=== PATIENT | female | born 1975 | race Caucasian/White ===

== ENCOUNTER → 2016-07-04 | Outpatient (CLI) | payer OTHER ==
[~2016-07-04] MED LIST: BUPR1TAB56 PO; folic acid OR; iron OR
--- NOTE | 2016-07-04 14:36 | REP ---
PA and lateral chest: There are no comparisons. The lung irvin are clear. The cardiac size is normal The sunil, mediastinum, and bony thorax are unremarkable. Impression: Negative PA and lateral chest. Signed by Cain Stokes MD 07/04/2016 02:27 P
== END ==
LOC: M ADAMS 14:04
PROVIDERS: ATTEND Physician Assistant
DX: R05 Cough (principal)

== ENCOUNTER → 2018-03-12 | Outpatient (REF) | payer OTHER ==
[2018-03-12 12:54] LABS: BASO # 0.1 10^3/uL (0.0-0.2); BASO % 0.8 % (0.0-1.0); EOS # 0.1 10^3/uL (0.0-0.50); EOS % 1.4 % (0.0-3.0); HEMATOCRIT 41.9 % (36.0-47.0); HEMOGLOBIN 14.2 g/dl (12.0-15.5); IMMATURE GRANULOCYTE % 0.3 % (0-3.0); LYMPH # 1.3 10^3/uL (1.5-4.5); LYMPH % 19.6 % (24.0-44.0); MEAN CORPUSCULAR HEMOGLOBIN 31.8 pg (27.0-33.0); MEAN CORPUSCULAR HGB CONC 33.9 g/dl (32.0-36.5); MEAN CORPUSCULAR VOLUME 93.9 fl (80.0-96.0); MONO # 0.4 10^3/uL (0.0-0.8); MONO % 6.3 % (0.0-5.0); NEUTROPHILS # 4.8 10^3/uL (1.8-7.7); NEUTROPHILS % 71.6 % (36.0-66.0); PLATELET COUNT, AUTOMATED 232 10^3/uL (150-450); RED BLOOD COUNT 4.46 10^6/uL (4.00-5.40); WHITE BLOOD COUNT 6.6 10^3/uL (4.0-10.0)
[2018-03-12 13:09] LABS: THYROID STIMULATING HORMONE 0.846 uIU/ML (0.358-3.740)
[2018-03-12 13:09] LABS: C REACTIVE PROTEIN QUANTITATIV < 0.30 MG/DL (0.00-0.30)
[2018-03-12 13:17] LABS: ERYTHROCYTE SEDIMENTATION RATE 4 mm/hr (0-20)
[2018-03-14 00:06] LABS: Lyme Disease IgG/IgM Antibodie <0.91 ISR (0.00-0.90); Lyme Disease IgM Ab Quantitati <0.80 index (0.00-0.79)
== END ==
LOC: M ADAMS 08:56
DX: M54.14 Radiculopathy, thoracic region (principal); M79.10 Myalgia, unspecified site
CPT/HCPCS: 84443

== ENCOUNTER → 2018-07-27 | Outpatient (REF) | payer OTHER ==
[2018-07-27 14:24] LABS: BASO # 0.1 10^3/uL (0.0-0.2); BASO % 1.2 % (0.0-1.0); EOS # 0.1 10^3/uL (0.0-0.50); EOS % 2.8 % (0.0-3.0); HEMATOCRIT 44.5 % (36.0-47.0); HEMOGLOBIN 14.6 g/dl (12.0-15.5); LYMPH # 1.8 10^3/uL (1.5-4.5); LYMPH % 36.6 % (24.0-44.0); MEAN CORPUSCULAR HGB CONC 32.8 g/dl (32.0-36.5); MEAN CORPUSCULAR VOLUME 94.5 fl (80.0-96.0); MONO # 0.5 10^3/uL (0.0-0.8); MONO % 10.4 % (0.0-5.0); NEUTROPHILS # 2.4 10^3/uL (1.8-7.7); NEUTROPHILS % 48.8 % (36.0-66.0); PLATELET COUNT, AUTOMATED 273 10^3/uL (150-450); RED BLOOD COUNT 4.71 10^6/uL (4.00-5.40)
[2018-07-27 14:40] LABS: ALBUMIN 4.2 GM/DL (3.2-5.2); ALT/SGPT 26 U/L (12-78); BILIRUBIN,TOTAL 0.6 MG/DL (0.2-1.0); BLOOD UREA NITROGEN 24 MG/DL (7-18); CARBON DIOXIDE LEVEL 30 MEQ/L (21-32); CHLORIDE LEVEL 104 MEQ/L (98-107); CHOLESTEROL LEVEL 220 MG/DL (<200); CHOLESTEROL RISK RATIO 2.391 (<5); CREATININE FOR GFR 0.83 MG/DL (0.55-1.30); FREE T3 2.9 PG/ML (2.2-4.0); FREE T4 0.91 NG/DL (0.76-1.46); GLOMERULAR FILTRATION RATE > 60.0 (>58); GLUCOSE, FASTING 77 MG/DL (70-100); HDL CHOLESTEROL 92 MG/DL (>40); IRON (FE) 131 UG/DL (50-170); LDL CHOLESTEROL 120 MG/DL (<100); NON-HDL-C 128 MG/DL; POTASSIUM SERUM 4.3 MEQ/L (3.5-5.1); SODIUM LEVEL 139 MEQ/L (136-145); TOTAL 25(OH) VITAMIN D 51.5 NG/ML (30.0-100.0); TOTAL PROTEIN 7.1 GM/DL (6.4-8.2); TRIGLYCERIDES LEVEL 38 MG/DL (<150); VITAMIN B12 LEVEL 1707 PG/ML (247-911)
== END ==
LOC: M LAB REF 13:04 → M LABDRWAD 13:04
PROVIDERS: ATTEND Nurse Practitioner Family
DX: R53.83 Other fatigue (principal); Z13.220 Encounter for screening for lipoid disorders; F41.9 Anxiety disorder, unspecified

== ENCOUNTER 2018-11-19 17:10 | Emergency (ER) | payer OTHER, SELFPAY ==
[~2018-11-19] VITALS: Ht 165.1 cm; Wt 76.2 kg
[2018-11-19] MEDS ORDERED: ESCI10TA2 PO (20:09)
[2018-11-19] MEDS ORDERED: KETOROLAC 60 MG/2 ML VIAL (J1885) IM ONE (21:15)
[2018-11-19 22:21] VITALS: BP 118/56
--- NOTE | 2018-11-19 22:41 | REPVR ---
EXAM: US Duplex Right Lower Extremity Veins, Limited EXAM DATE/TIME: 11/19/2018 10:21 PM CLINICAL HISTORY: 43 years old, female; Pain; Leg, lower; Right; Additional info: Hematoma distal end of calf, felt a pop today TECHNIQUE: Imaging protocol: Real-time Duplex ultrasound of the Right Lower Extremity with 2-D newsome scale, color Doppler flow and spectral waveform analysis with image documentation. Limited exam was focused on the right lower extremity veins. COMPARISON: No relevant prior studies available. FINDINGS: Right deep veins: Unremarkable. The common femoral, femoral, proximal profunda femoral and popliteal veins are patent without thrombus. Normal Doppler waveforms. Normal compressibility and/or augmentation response. Right superficial veins: Unremarkable. Saphenofemoral junction is patent without thrombus. Soft tissues: Grossly unremarkable IMPRESSION: No sonographic evidence of deep vein thrombosis. Electronically signed by: Noman Ornelas On 11/19/2018 22:40:50 PM
[2018-11-19] MEDS ORDERED: KETO10TAB PO (22:57)
[2018-11-19] MEDS ORDERED: KETOROLAC TROMETHAMINE 10 MG TAB PO ONE (23:00)
[2018-11-19] MEDS ORDERED: ACETAMINOPHEN 500 MG TAB PO ONE (23:00)
== END 2018-11-19 23:09 | disposition home or self-care (01) ==
LOC: M ED 17:10
DX: S80.11XA Contusion of right lower leg, initial encounter (principal); W22.8XXA Striking against or struck by other objects, initial encounter; Y92.830 Public park as the place of occurrence of the external cause; Z79.899 Other long term (current) drug therapy; Z88.0 Allergy status to penicillin; Z88.5 Allergy status to narcotic agent; F17.210 Nicotine dependence, cigarettes, uncomplicated
CPT/HCPCS: 93971; 96372; 99283; J1885

== ENCOUNTER 2019-06-15 12:40 | Emergency (ER) | payer BC, OTHER ==
[~2019-06-15] VITALS: Ht 162.6 cm; Wt 76.5 kg
[~2019-06-15 12:40] MED LIST changes: +ESCI10TA2 PO; +KETO10TAB PO
[2019-06-15] MEDS ORDERED: CBD OIL PO (13:40)
[2019-06-15] MEDS ORDERED: GUAI1TAB15 PO (13:40)
[2019-06-15 13:42] LABS: BASO % 0.4 % (0.0-1.0); EOS # 0.1 10^3/uL (0.0-0.5); EOS % 0.8 % (0.0-3.0); HEMATOCRIT 44.7 % (36.0-47.0); HEMOGLOBIN 15.4 g/dl (12.0-15.5); LYMPH # 0.3 10^3/uL (1.5-5.0); LYMPH % 4.4 % (24.0-44.0); MEAN CORPUSCULAR HEMOGLOBIN 31.8 pg (27.0-33.0); MEAN CORPUSCULAR HGB CONC 34.5 g/dl (32.0-36.5); MEAN CORPUSCULAR VOLUME 92.4 fl (80.0-96.0); MONO # 0.5 10^3/uL (0.0-0.8); MONO % 6.8 % (0.0-5.0); NEUTROPHILS # 6.7 10^3/uL (1.5-8.5); NEUTROPHILS % 87.3 % (36.0-66.0); PLATELET COUNT, AUTOMATED 207 10^3/uL (150-450); RED BLOOD COUNT 4.84 10^6/uL (4.00-5.40); WHITE BLOOD COUNT 7.7 10^3/uL (4.0-10.0)
[2019-06-15 14:11] LABS: ALBUMIN 3.9 GM/DL (3.2-5.2); ALT/SGPT 25 U/L (12-78); BILIRUBIN,DIRECT 0.1 MG/DL (0.0-0.2); BILIRUBIN,TOTAL 0.4 MG/DL (0.2-1.0); BLOOD UREA NITROGEN 9 MG/DL (7-18); CALCIUM LEVEL 8.6 MG/DL (8.5-10.1); CARBON DIOXIDE LEVEL 27 MEQ/L (21-32); CHLORIDE LEVEL 105 MEQ/L (98-107); CREATININE FOR GFR 0.78 MG/DL (0.55-1.30); GLOMERULAR FILTRATION RATE > 60.0 (>58); GLUCOSE, FASTING 85 MG/DL (70-100); POTASSIUM SERUM 3.4 MEQ/L (3.5-5.1); SODIUM LEVEL 137 MEQ/L (136-145); THYROID STIMULATING HORMONE 0.607 uIU/ML (0.358-3.740); TOTAL PROTEIN 7.9 GM/DL (6.4-8.2)
[2019-06-15] MEDS ORDERED: ONDA4TAB6 PO (15:48)
[2019-06-15] MEDS ORDERED: OSEL75CA PO (15:48)
[2019-06-15 16:38] VITALS: BP 111/54
--- NOTE | 2019-06-16 08:16 | REP ---
REASON: Cough and dyspnea. PRIORS: None. FINDINGS: The technique utilized in obtaining the radiograph has magnified the cardiac silhouette and accentuated the interstitial markings. The superior mediastinal structures are midline. The cardiac silhouette is unremarkable in size, shape, and position. The diaphragmatic surfaces of the lungs are regular, and the costophrenic angles are clear. The pulmonary irvin are clear. The imaged osseous structures are intact. IMPRESSION: There is no acute cardiopulmonary disease. Unreviewed
== END 2019-06-15 16:40 | disposition home or self-care (01) ==
LOC: M ED 12:40
DX: J10.01 Influenza due to other identified influenza virus with the same other identified influenza virus pneumonia (principal); F17.210 Nicotine dependence, cigarettes, uncomplicated; Z88.0 Allergy status to penicillin; Z88.5 Allergy status to narcotic agent; Z79.899 Other long term (current) drug therapy

== ENCOUNTER → 2020-08-07 | Outpatient (REF) | payer BC ==
[~2020-08-07] MED LIST changes: +CBD OIL PO; +ESCI10TA16 PO; -ESCI10TA2 PO; +GUAI1TAB15 PO; +ONDA4TAB6 PO; +OSEL75CA PO
[2020-08-07 10:49] LABS: BASO % 0.6 % (0.0-1.0); EOS # 0.2 10^3/uL (0.0-0.5); EOS % 2.3 % (0.0-3.0); HEMATOCRIT 44.1 % (36.0-47.0); HEMOGLOBIN 14.8 g/dl (12.0-15.5); LYMPH # 1.8 10^3/uL (1.5-5.0); LYMPH % 26.8 % (24.0-44.0); MEAN CORPUSCULAR HEMOGLOBIN 32.2 pg (27.0-33.0); MEAN CORPUSCULAR HGB CONC 33.6 g/dl (32.0-36.5); MEAN CORPUSCULAR VOLUME 96.1 fl (80.0-96.0); MONO # 0.6 10^3/uL (0.0-0.8); MONO % 9.3 % (2.0-8.0); NEUTROPHILS % 60.7 % (36.0-66.0); PLATELET COUNT, AUTOMATED 270 10^3/uL (150-450); RED BLOOD COUNT 4.59 10^6/uL (4.00-5.40); WHITE BLOOD COUNT 6.6 10^3/uL (4.0-10.0)
[2020-08-07 11:33] LABS: ALBUMIN 3.7 GM/DL (3.2-5.2); ALT/SGPT 22 U/L (12-78); BILIRUBIN,TOTAL 0.6 MG/DL (0.2-1.0); BLOOD UREA NITROGEN 13 MG/DL (7-18); CALCIUM LEVEL 8.9 MG/DL (8.5-10.1); CARBON DIOXIDE LEVEL 29 MEQ/L (21-32); CHLORIDE LEVEL 105 MEQ/L (98-107); CHOLESTEROL LEVEL 188 MG/DL (<200); CHOLESTEROL RISK RATIO 2.112 (<5); CREATININE FOR GFR 0.63 MG/DL (0.55-1.30); FREE T4 0.81 NG/DL (0.76-1.46); GLOMERULAR FILTRATION RATE > 60.0 (>58); GLUCOSE, FASTING 84 MG/DL (70-100); HDL CHOLESTEROL 89 MG/DL (>40); LDL CHOLESTEROL 90 MG/DL (<100); NON-HDL-C 99 MG/DL; POTASSIUM SERUM 4.6 MEQ/L (3.5-5.1); SODIUM LEVEL 138 MEQ/L (136-145); TOTAL PROTEIN 6.7 GM/DL (6.4-8.2); TRIGLYCERIDES LEVEL 46 MG/DL (<150)
== END ==
LOC: M LABDRWAD 09:29
PROVIDERS: ATTEND Family Medicine
DX: Z13.29 Encounter for screening for other suspected endocrine disorder (principal); Z13.0 Encounter for screening for diseases of the blood and blood-forming organs and certain disorders involving the immune mechanism; Z13.220 Encounter for screening for lipoid disorders

== ENCOUNTER → 2020-10-19 | Outpatient (CLI) | payer BC ==
[~2020-10-19] MED LIST changes: +BACL10TA2 PO; +BUPR150T12; +IBUP80TA PO; +LEXA1TAB; +LIDO5DIS41 TOP; +NAPR-885; +TIZA4TAB4
--- NOTE | 2020-10-19 15:34 | REP ---
INDICATION: LOW BACK PAIN. COMPARISON: None. TECHNIQUE: Five views lumbosacral spine. FINDINGS: There is no compression fracture or malalignment. There is straightening of the normal lumbar lordosis. There is mild diffuse spurring. There is moderate disc space narrowing and subchondral sclerosis at L3-4. There is mild narrowing and subchondral sclerosis at L5-S1. There is sclerosis at the facets of L5-S1. The posterior elements are intact. IMPRESSION: Degenerative changes, most significantly at the L3-4 disc level. <Electronically signed by Cain Price > 10/19/20 [id number]
== END ==
LOC: M WUC 13:24
PROVIDERS: ATTEND Physician Assistant
DX: M54.5 Low back pain (principal)

== ENCOUNTER 2020-10-20 07:10 | Emergency (ER) | payer BC ==
[~2020-10-20] VITALS: Ht 165.1 cm; Wt 60.0 kg
[~2020-10-20 07:10] MED LIST changes: -BACL10TA2 PO; -BUPR150T12; -IBUP80TA PO; -LEXA1TAB; -LIDO5DIS41 TOP; -NAPR-885; -TIZA4TAB4
[2020-10-20] MEDS ORDERED: ACETAMINOPHEN 500 MG TAB PO ONE (08:05)
[2020-10-20] MEDS ORDERED: KETOROLAC 30 MG/ML 1ML VIAL IM ONE (08:05)
[2020-10-20] MEDS ORDERED: LIDOCAINE 5% (LIDODERM) PATCH TD ONE (08:05)
[2020-10-20] MEDS ORDERED: CYCLOBENZAPRINE 10MG TABLET PO ONE (08:05)
--- NOTE | 2020-10-20 09:57 | REPVR ---
PROCEDURE INFORMATION: Exam: CT Lumbar Spine Without Contrast Exam date and time: 10/20/2020 8:17 AM Age: 45 years old Clinical indication: Low back pain; Additional info: Left low back pain S/P fall TECHNIQUE: Imaging protocol: Computed tomography images of the lumbar spine without contrast. Radiation optimization: All CT scans at this facility use at least one of these dose optimization techniques: automated exposure control; mA and/or kV adjustment per patient size (includes targeted exams where dose is matched to clinical indication); or iterative reconstruction. COMPARISON: CR SPINE LS COMPLETE 10/19/2020 1:42 PM FINDINGS: Vertebrae: There is a lumbar levoscoliosis. No acute fracture. Normal alignment. Discs/Spinal canal/Neural foramina: No significant disc protrusion. No severe spinal canal stenosis. No significant neural foraminal narrowing. Soft tissues: Unremarkable. IMPRESSION: No acute findings. Electronically signed by: Terri Ventura On 10/20/2020 09:57:26 AM
[2020-10-20] MEDS ORDERED: IBUP80TA PO (10:11)
[2020-10-20] MEDS ORDERED: LIDO5DIS41 TOP (10:11)
[2020-10-20] MEDS ORDERED: NAPR-885 (10:18)
[2020-10-20] MEDS ORDERED: TIZA4TAB4 (10:18)
[2020-10-20] MEDS ORDERED: BUPR150T12 (10:18)
[2020-10-20] MEDS ORDERED: LEXA1TAB (10:18)
[2020-10-20] MEDS ORDERED: BACL10TA2 PO (10:21)
[2020-10-20 10:44] VITALS: BP 103/77
[2020-10-20] MEDS ORDERED: **NOTE PATIENT COMMENT** MISC XX SCH (21:00)
== END 2020-10-20 10:45 | disposition home or self-care (01) ==
LOC: M ED 07:10
DX: S30.0XXA Contusion of lower back and pelvis, initial encounter (principal); Y92.9 Unspecified place or not applicable; Y93.9 Activity, unspecified; Y99.9 Unspecified external cause status; F17.200 Nicotine dependence, unspecified, uncomplicated; Z88.0 Allergy status to penicillin; Z88.6 Allergy status to analgesic agent
CPT/HCPCS: 72131; 96372; 99284; J1885

== ENCOUNTER → 2020-12-10 | Outpatient (CLI) | payer BC ==
[~2020-12-10] MED LIST changes: +BACL10TA2 PO; +BUPR150T12; +IBUP80TA PO; +LEXA1TAB; +LIDO5DIS41 TOP; +NAPR-885; +TIZA4TAB4
[2020-12-10 13:54] LABS: HEMOGLOBIN A1c 5.2 %
== END ==
LOC: M PLALAB 07:26
PROVIDERS: ATTEND Physician Assistant
DX: E66.8 Other obesity (principal)

== ENCOUNTER → 2022-03-29 | Outpatient (REF) | payer BC ==
[~2022-03-29] MED LIST changes: +TIZA10TA; -TIZA4TAB4
[2022-03-29 15:21] LABS: BASO # 0.1 10^3/uL (0.0-0.2); BASO % 0.7 % (0.0-1.0); EOS # 0.1 10^3/uL (0.0-0.5); EOS % 1.4 % (0.0-3.0); HEMATOCRIT 43.3 % (36.0-47.0); HEMOGLOBIN 14.4 g/dl (12.0-15.5); LYMPH # 2.3 10^3/uL (1.5-5.0); LYMPH % 27.6 % (24.0-44.0); MEAN CORPUSCULAR HEMOGLOBIN 30.7 pg (27.0-33.0); MEAN CORPUSCULAR HGB CONC 33.3 g/dl (32.0-36.5); MEAN CORPUSCULAR VOLUME 92.3 fl (80.0-96.0); MONO # 0.5 10^3/uL (0.0-0.8); MONO % 5.4 % (2.0-8.0); NEUTROPHILS # 5.3 10^3/uL (1.5-8.5); NEUTROPHILS % 64.4 % (36.0-66.0); PLATELET COUNT, AUTOMATED 333 10^3/uL (150-450); RED BLOOD COUNT 4.69 10^6/uL (4.00-5.40); WHITE BLOOD COUNT 8.3 10^3/uL (4.0-10.0)
[2022-03-29 15:47] LABS: ALBUMIN 3.7 G/DL (3.2-5.2); ALKALINE PHOSPHATASE 80 U/L (46-116); ALT/SGPT 23 U/L (7.0-40); AST/SGOT 18 U/L (<34); BILIRUBIN,TOTAL 0.4 MG/DL (0.3-1.2); BLOOD UREA NITROGEN 14 MG/DL (9-23); CALCIUM LEVEL 9.4 MG/DL (8.5-10.1); CARBON DIOXIDE LEVEL 28 MMOL/L (20-31); CHLORIDE LEVEL 101 MMOL/L (98-107); CREATININE FOR GFR 0.64 MG/DL (0.55-1.30); GLOMERULAR FILTRATION RATE > 60.0 (>58); GLUCOSE, FASTING 87 MG/DL (60-100); SODIUM LEVEL 138 MMOL/L (136-145)
[2022-03-29 15:49] LABS: FREE T4 0.91 NG/DL (0.89-1.76); THYROID STIMULATING HORMONE 1.466 uIU/ML (0.55-4.78)
== END ==
LOC: M LABDRWAD 14:41
PROVIDERS: ATTEND Nurse Practitioner Adult Health
DX: F33.1 Major depressive disorder, recurrent, moderate (principal); F90.0 Attention-deficit hyperactivity disorder, predominantly inattentive type

== ENCOUNTER → 2022-05-30 | Outpatient (CLI) | payer BC | LOC: M PLAIMG 07:47 | PROVIDERS: ATTEND Nurse Practitioner Adult Health | DX: Z12.31 Encounter for screening mammogram for malignant neoplasm of breast (principal) ==

== ENCOUNTER → 2023-01-29 | Outpatient (CLI) | payer BC | LOC: M RAD 12:17 | PROVIDERS: ATTEND Physician Assistant | DX: M25.542 Pain in joints of left hand (principal) ==

== ENCOUNTER 2023-09-20 11:44 | Day surgery (SDC) | payer BC ==
[~2023-09-20] VITALS: Ht 162.6 cm; Wt 77.1 kg
[~2023-09-20 11:44] MED LIST changes: +ACET-897 PO; +AMPH1CAP5 PO; +IBUP-1114 PO; +ONDA-282 PO; -ONDA4TAB6 PO; +SEMA0.257 SQ
[2023-09-20] MEDS: NS 1,000 ML IV ONE (12:19)
[2023-09-20 13:35] VITALS: TEMP 96.3
[2023-09-20 13:53] VITALS: BP 120/58; O2SAT 99
== END 2023-09-20 14:05 | disposition home or self-care (01) ==
LOC: M OPP 11:44
PROVIDERS: ATTEND Surgery
DX: Z12.11 Encounter for screening for malignant neoplasm of colon (principal); K64.0 First degree hemorrhoids; Z79.1 Long term (current) use of non-steroidal anti-inflammatories (NSAID); Z79.85 Long-term (current) use of injectable non-insulin antidiabetic drugs; Z79.899 Other long term (current) drug therapy; Z88.0 Allergy status to penicillin; Z88.5 Allergy status to narcotic agent

== ENCOUNTER → 2023-10-11 | Outpatient (CLI) | payer BC ==
[2023-10-11 14:02] LABS: URIC ACID 3.6 MG/DL (3.1-7.8)
[2023-10-11 14:04] LABS: C REACTIVE PROTEIN QUANTITATIV < 0.40 MG/DL (<1.0)
[2023-10-11 14:07] LABS: FOLLICLE STIMULATING HORMONE 135.1 mIU/ML; LUTEINIZING HORMONE 65.5 mIU/ML; THYROID STIMULATING HORMONE 1.648 uIU/ML (0.55-4.78)
[2023-10-11 14:08] LABS: FREE T4 1.14 NG/DL (0.89-1.76)
[2023-10-12 14:17] LABS: ANA SCREEN, IFA NEGATIVE (NEGATIVE)
[2023-10-12 14:24] LABS: RHEUMATOID FACTOR QUANT 5.1 IU/ML (<14)
[2023-10-15 17:22] LABS: TESTOSTERONE FREE (DIRECT) 1.1 pg/mL (0.1-6.4); TESTOSTERONE TOTAL FOR T&D 14 ng/dL (2-45)
== END ==
LOC: M LABDRWAD 09:37
PROVIDERS: ATTEND Nurse Practitioner Adult Health
DX: N95.1 Menopausal and female climacteric states (principal); M25.50 Pain in unspecified joint

== ENCOUNTER → 2024-03-05 | Outpatient (CLI) | payer BC ==
[~2024-03-05] MED LIST changes: +PROHANCE 279.3MG/ML 15ML VIAL ONE
== END ==
LOC: M PLAIMG 14:59
PROVIDERS: ATTEND Nurse Practitioner Adult Health
DX: Z98.82 Breast implant status (principal)
CPT/HCPCS: 77049; A9576

== ENCOUNTER → 2024-12-04 | Outpatient (CLI) | payer BC ==
[~2024-12-04] MED LIST changes: -BUPR1TAB56 PO; +BUPR200T45 PO; +LIDO1ADH93 TOP; -LIDO5DIS41 TOP; -PROHANCE 279.3MG/ML 15ML VIAL ONE
[2024-12-04 13:53] LABS: TOTAL 25(OH) VITAMIN D 36.5 NG/ML (20.0-100.0)
[2024-12-04 13:54] LABS: BASO # 0.1 10^3/uL (0.0-0.2); BASO % 0.6 % (0.0-1.0); EOS # 0.1 10^3/uL (0.0-0.5); EOS % 1.2 % (0.0-3.0); LYMPH # 1.7 10^3/uL (1.5-5.0); LYMPH % 20.8 % (24.0-44.0); MONO # 0.7 10^3/uL (0.0-0.8); MONO % 8.6 % (2.0-8.0); NEUTROPHILS # 5.5 10^3/uL (1.5-8.5); NEUTROPHILS % 68.6 % (36.0-66.0); PLATELET COUNT, AUTOMATED 295 10^3/uL (150-450)
[2024-12-04 13:55] LABS: LUTEINIZING HORMONE 62.7 mIU/ML
[2024-12-04 13:56] LABS: ESTRADIOL 44.8 PG/ML; FREE T4 1.17 NG/DL (0.89-1.76)
[2024-12-04 13:57] LABS: VITAMIN B12 LEVEL 425 PG/ML (211-911)
[2024-12-04 13:58] LABS: ALT/SGPT 23 U/L (7.0-40); AST/SGOT 22 U/L (<34); CALCIUM LEVEL 9.4 MG/DL (8.5-10.1); CARBON DIOXIDE LEVEL 30 MMOL/L (20-31); CHLORIDE LEVEL 103 MMOL/L (98-107); CREATININE FOR GFR 0.79 MG/DL (0.55-1.30); GLOMERULAR FILTRATION RATE > 90.0 (>51); IRON (FE) 43 UG/DL (50-170); MAGNESIUM LEVEL 2.0 MG/DL (1.8-2.4); PERCENT SATURATION 14.6 % (13.2-45.0); POTASSIUM SERUM 4.4 MMOL/L (3.5-5.1); SODIUM LEVEL 143 MMOL/L (136-145)
[2024-12-08 16:38] LABS: TESTOSTERONE FREE (DIRECT) 1.3 pg/mL (0.1-6.4); TESTOSTERONE TOTAL FOR T&D 16.0 ng/dL (2-45)
[2024-12-10 18:13] LABS: ESTROGENS TOTAL 64.0 pg/mL
== END ==
LOC: M LABDRWAD 07:39
PROVIDERS: ATTEND Nurse Practitioner Adult Health
DX: R53.83 Other fatigue (principal)